=== PATIENT | female | born 1965 | race African-American/Black ===

== ENCOUNTER 2017-06-02 06:25 | Emergency (ER) | payer BC, OTHER ==
[~2017-06-02] VITALS: Ht 175.3 cm; Wt 81.6 kg
[2017-06-02 06:33] VITALS: BP 140/77
[2017-06-02] MEDS ORDERED: TETRACAINE HCL/PF 0.5% UD 2 ML BOTTLE ONE (06:40)
[2017-06-02] MEDS ORDERED: FLUORESCEIN SODIUM OPHTH 1 EA STRIP ONE (06:40)
[2017-06-02] MEDS ORDERED: TETRACAINE HCL/PF 0.5% UD 2 ML BOTTLE RIGHTEYE ONE (07:00)
[2017-06-02] MEDS ORDERED: FLUORESCEIN SODIUM OPHTH 1 EA STRIP RIGHTEYE ONE (07:00)
== END 2017-06-02 06:57 | disposition home or self-care (01) ==
LOC: ER 06:28
DX: H10.219 Acute toxic conjunctivitis, unspecified eye (principal); D64.9 Anemia, unspecified; F17.200 Nicotine dependence, unspecified, uncomplicated
CPT/HCPCS: A4606; Z7610

== ENCOUNTER 2018-06-11 04:49 | Emergency (ER) | payer OTHER ==
[~2018-06-11] VITALS: Ht 180.3 cm; Wt 104.3 kg
[2018-06-11] MEDS ORDERED: IBUPROFEN 400 MG TABLET ONE (05:24)
[2018-06-11] MEDS ORDERED: IBUPROFEN 400 MG TABLET PO ONE (05:30)
--- NOTE | 2018-06-11 05:34 | NUR ---
PT CAME IN FOR C/O LEI, S/P GLF TO HER BILAT' KNEE, WHILE TRYING TO ASSIST, A PT AT PLACE OF WORK, PLACED ON EF BED 16, SEEN AND EVAL DONE DR NARANJO, [place] ORDERED.
--- NOTE | 2018-06-11 05:36 | NUR ---
XR KNEE DONE, AWAITING RESULTS.
--- NOTE | 2018-06-11 06:07 | NUR ---
Patient discharged to home in stable condition. Written and verbal after care instructions given, with rx. Patient verbalizes understanding of instruction, able to transfer by self to [facility] with assist.
[2018-06-11 06:10] VITALS: BP 145/84
== END 2018-06-11 06:12 | disposition home or self-care (01) ==
LOC: ER 04:49
DX: S83.8X2A Sprain of other specified parts of left knee, initial encounter (principal); F17.200 Nicotine dependence, unspecified, uncomplicated; W18.39XA Other fall on same level, initial encounter; Y93.89 Activity, other specified; Y92.89 Other specified places as the place of occurrence of the external cause; Y99.0 Civilian activity done for income or pay
CPT/HCPCS: 73564-TC